=== PATIENT | female | born 1995 | race African-American/Black ===

== ENCOUNTER 2020-12-30 17:07 | Observation (INO) | payer OTHER ==
[~2020-12-30] VITALS: Ht 154.9 cm; Wt 48.5 kg
[2020-12-30 17:08] VITALS: BP 156/100
[2020-12-30 19:05] LABS: EOSINOPHILS 4.4 % (0.0-3.0); HEMOGLOBIN 9.7 gm/dL (12.0-15.0); LYMPHOCYTES 21.4 % (24.0-44.0); MCH 26.3 pg (26.0-34.0); MCHC 32.3 g/dL (28.0-37.0); MCV 81.3 fL (80.0-100.0); MONOCYTES 11.7 % (1.0-8.0); PLATELET COUNT 568 thou/uL (150-400); POLYS 61.5 % (36.0-66.0); RBC 3.69 mil/uL (4.20-5.00); RDW 17.3 % (10.5-14.5); WBC 9.7 thou/uL (4.0-11.0)
[2020-12-30 19:15] LABS: ALBUMIN 2.9 g/dL (3.4-5.0); CALCIUM 9.7 mg/dL (8.5-10.1); CREATININE 7.3 mg/dL (0.6-1.0); DIRECT BILIRUBIN 0.2 mg/dL (<0.1-0.2); TOTAL BILIRUBIN 0.4 mg/dL (0.2-1.0); TOTAL PROTEIN 7.4 g/dL (6.4-8.2)
[2020-12-30 19:34] LABS: PHOSPHORUS 5.2 mg/dL (2.6-4.7)
[2020-12-30 19:36] LABS: POTASSIUM 6.9 mmol/L (3.5-5.1)
[2020-12-30 20:27] VITALS: BP 157/96
[2020-12-30 21:08] VITALS: BP 183/110
[2020-12-30 21:30] VITALS: BP 160/99
[2020-12-30] MEDS ORDERED: HYDRALAZINE 2525 M1 PO (23:52)
[2020-12-30] MEDS ORDERED: NOVOLOG INJ FLE (23:53)
[2020-12-30] MEDS ORDERED: BUPROPION PO (23:54)
[2020-12-30] MEDS ORDERED: HYDROXYZ HCL PO (23:55)
[2020-12-30] MEDS ORDERED: MIRTAZAPINE PO (23:56)
[2020-12-30] MEDS ORDERED: SERTRALINE PO (23:57)
[2020-12-30] MEDS ORDERED: OMEPRAZOLE PO (23:58)
[2020-12-31] MEDS ORDERED: OXYCODONE 5 MG PO
[2020-12-31 00:08] VITALS: BP 133/88
[2020-12-31 03:45] VITALS: BP 127/80
[2020-12-31 05:31] LABS: HEMATOCRIT 33.6 % (37.0-47.0); HEMOGLOBIN 10.7 gm/dL (12.0-15.0); MCH 26.3 pg (26.0-34.0); MCHC 31.8 g/dL (28.0-37.0); MCV 82.8 fL (80.0-100.0); RBC 4.06 mil/uL (4.20-5.00); WBC 8.6 thou/uL (4.0-11.0)
[2020-12-31 05:49] LABS: CREATININE 8.2 mg/dL (0.6-1.0)
[2020-12-31 06:00] LABS: POTASSIUM 6.3 mmol/L (3.5-5.1)
--- NOTE | 2020-12-31 06:03 | NUR ---
PT ADMITTED FROM ER WITH CRITICAL HIGH K+. CONSULT CALLED IN TO [facility] AND SPOKE TO PHYSICIAN. PT IS A/0X4 AND VERY DROWSY. PT DID NOT HAVE DIALYSIS YESTERDAY AT [facility]. ADMISSION COMPLETED, MED REC, INTERVENTIONS, AND CARE PLAN IN PLACE. PT HAS PEG TUBE AND CONTINUOS GLUCOSE MONITORING. PT STATES SHE HAS ISOSOURCE 2 CANS Q4. PERSONAL BANKING ADVISOR CONSULTED. PT HAVING COPIOUS AMOUNTS OF DIARRHEA AND ABDOMINAL PAIN. IV PAIN MEDICATION GIVEN Q4 WITH GOOD RESULTS.
--- NOTE | 2020-12-31 07:06 | EKG ---
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
[2020-12-31 08:02] VITALS: BP 175/130
[2020-12-31 09:06] VITALS: BP 149/98
[2020-12-31 12:55] VITALS: BP 149/98
--- NOTE | 2020-12-31 15:04 | NUR ---
INITIAL ASSESSMENT/DISCHARGE NOTE: Received consult. JOSE reviewed chart and spoke with nursing and attending physician. Pt was admitted from home due to abdominal pain. Pt with hx ESRD and is on dialysis at [facility]. Pt will discharge home today after dialysis. Pt missed her scheduled dialysis yesterday. JOSE met with pt at bedside. Introduced role of SW. Pt is alert/orientated x 4. Pt reports she lives at home with family. Prior to admission, pt was independent with ADLs. Pt has a peg tube in place. Pt reports she goes to dialysis -. No use of DME. Pt states she will have transportation home when discharged. JOSE faxed clinical info and discharge orders/summary to [facility] JOSE spoke with Ree to notify of pt's discharge. Pt will resume her regular outpatient dialysis tomorrow. No additional SW needs identified at this time, but is available to assist should needs arise.
== END 2020-12-31 14:24 | disposition home or self-care (01) ==
LOC: ER 17:07 → 3W 19:49 → EROBS 19:49 → 3W 21:35
PROVIDERS: Emergency Medicine; Nurse Practitioner Family; ADMIT Hospitalist; ATTEND Hospitalist
DX: E87.5 Hyperkalemia (principal); Z20.822 Contact with and (suspected) exposure to COVID-19; I12.0 Hypertensive chronic kidney disease with stage 5 chronic kidney disease or end stage renal disease; E11.22 Type 2 diabetes mellitus with diabetic chronic kidney disease; R11.2 Nausea with vomiting, unspecified; N18.6 End stage renal disease; E43 Unspecified severe protein-calorie malnutrition; R10.9 Unspecified abdominal pain; G43.909 Migraine, unspecified, not intractable, without status migrainosus; Z79.899 Other long term (current) drug therapy
CPT/HCPCS: 10879; 32100